=== PATIENT | male | born 2005 | race Two or more races ===

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

== ENCOUNTER 2024-01-29 08:18 | Outpatient (CLI) | payer OTHER | END 2024-01-29 08:31 | disposition home or self-care (01) | LOC: SONOGRAMA 08:18 | PROVIDERS: ATTEND Pediatrics | DX: K76.0 Fatty (change of) liver, not elsewhere classified (principal) ==

== ENCOUNTER 2025-01-24 08:31 | Outpatient (CLI) | payer OTHER | END 2025-01-24 08:41 | disposition home or self-care (01) | LOC: SONOGRAMA 08:31 | PROVIDERS: ATTEND Pediatrics | DX: K76.0 Fatty (change of) liver, not elsewhere classified (principal) ==